=== PATIENT | male | born 1980 | race Caucasian/White ===

== ENCOUNTER 2017-10-17 00:45 | Emergency (ER) | payer MEDICAID ==
[~2017-10-17] VITALS: Ht 175.3 cm; Wt 122.5 kg
[2017-10-17 06:42] VITALS: BP 139/87
[2017-10-17] MEDS ORDERED: ONDANSETRON ODT 4 MG TAB PO ONE (06:45)
[2017-10-17] MEDS ORDERED: HYDROcodone-ACET 5/325MG TAB PO ONE (07:00)
== END 2017-10-17 08:17 | disposition home or self-care (01) ==
LOC: ER 00:50
DX: S09.90XA Unspecified injury of head, initial encounter (principal); V43.62XA Car passenger injured in collision with other type car in traffic accident, initial encounter; Y93.89 Activity, other specified; Y92.89 Other specified places as the place of occurrence of the external cause; Y99.8 Other external cause status
CPT/HCPCS: 70450; 72125

== ENCOUNTER 2023-09-21 18:50 | Emergency (ER) | payer MEDICAID ==
[~2023-09-21] VITALS: Ht 177.8 cm; Wt 125.3 kg
[2023-09-21 19:07] VITALS: BP 154/91; PULSE 71; RESP 18; TEMP 97.8; O2SAT 98
[2023-09-21 19:29] LABS: Basophils # (auto) 0.1 10 ^3/uL (0-0.2); Basophils % (auto) 0.8 % (0.0-2.0); Eosinophils # (auto) 0.1 10 ^3/uL (0-0.8); Eosinophils % (auto) 1.6 % (0.0-7.0); Hemoglobin 15.1 g/dL (13.5-17.5); Lymphocytes # (auto) 2.1 10 ^3/uL (0.4-5.4); Mean Corpuscular Hemoglobin 29.1 pg (28.0-32.0); Mean Corpuscular Hgb Conc. 33.7 g/dL (32.0-36.0); Mean Corpuscular Volume 86.3 fL (80.0-100.0); Monocytes # (auto) 1.1 10 ^3/uL (0-1.3); Monocytes % (auto) 13.1 % (0.0-12.0); Neutrophils # (auto) 4.7 10 ^3/uL (1.6-8.6); Neutrophils % (auto) 58.5 % (37.0-80.0); Nucleated Red Blood Cells % 0.5 %; Red Blood Cells 5.21 10^6/uL (4.5-5.90); Red Cell Distribution Width 13.7 % (11.8-14.3)
[2023-09-21 19:41] LABS: Alanine Aminotransferase 25 U/L (7-40); Albumin 4.6 g/dL (3.2-4.8); Alkaline Phosphatase 88 U/L (46-116); Anion Gap 6 (5-15); Aspartate Aminotransferase 11 U/L (13-40); BUN/Creatinine Ratio 11.1 (10.0-20.0); Blood Urea Nitrogen 10 mg/dL (9-23); Calcium 9.8 mg/dL (8.7-10.4); Carbon Dioxide 27 mmol/L (20-30); Chloride 106 mmol/L (98-107); Glucose 90 mg/dL (74-106); Sodium 139 mmol/L (136-145)
[2023-09-21 19:42] LABS: Rapid Strep A Screen-Throat Negative
[2023-09-21 19:42] LABS: Bilirubin, Total 0.4 mg/dL (0.2-1.0); Total Protein 7.6 g/dL (5.7-8.2)
[2023-09-21] MEDS ORDERED: PRED20TA2 PO (20:13)
[2023-09-21] MEDS ORDERED: AMOX500C2 PO (20:13)
[2023-09-21] MEDS ORDERED: CYCL-839 PO (20:13)
[2023-09-21] MEDS ORDERED: LIDO2SOL18 MT (20:13)
[2023-09-21] MEDS ORDERED: HYDR-4902 PO (20:13)
[2023-09-21] MEDS ORDERED: KETOROLAC TROMETH 60MG/2ML VIAL IM ONE (20:15)
[2023-09-21] MEDS ORDERED: HYDROcodone-ACET 5/325MG TAB PO ONE (20:15)
[2023-09-21] MEDS ORDERED: LIDOCAINE VISCOUS 2% 15ML UD MT ONE (20:15)
[2023-09-21] MEDS ORDERED: DexAMETHasone SOD PHOS 10MG/1ML VIAL INJ IM ONE (20:15)
[2023-09-21] MEDS ORDERED: cefTRIAXone SOD 1,000 MG VL IM ONE (20:15)
== END 2023-09-21 20:58 | disposition home or self-care (01) ==
LOC: ER 18:50
DX: J03.90 Acute tonsillitis, unspecified (principal); M62.838 Other muscle spasm; M79.645 Pain in left finger(s); I10 Essential (primary) hypertension
CPT/HCPCS: 36415; 72040; 80053; 85025; 86308; 87070; 87880; 96372; 99284; J0696; J1100; J1885

== ENCOUNTER 2023-10-22 22:58 | Emergency (ER) | payer MEDICAID ==
[~2023-10-22] VITALS: Ht 177.8 cm; Wt 130.0 kg
[2023-10-22 22:58] VITALS: BP 159/101; RESP 20; O2SAT 98
[~2023-10-22 22:58] MED LIST: AMOX500C2 PO; CYCL-839 PO; HYDR-4902 PO; LIDO2SOL18 MT; PRED20TA2 PO
[2023-10-22 23:13] VITALS: PULSE 83
== END 2023-10-23 02:44 | disposition left against medical advice (07) ==
LOC: ER 22:58
DX: R22.43 Localized swelling, mass and lump, lower limb, bilateral (principal); R94.31 Abnormal electrocardiogram [ECG] [EKG]; Z53.21 Procedure and treatment not carried out due to patient leaving prior to being seen by health care provider
CPT/HCPCS: 93005